=== PATIENT | male | born 1980 | race Caucasian/White ===

== ENCOUNTER 2018-04-20 07:54 | Day surgery (SDC) | payer OTHER ==
[2018-04-10 10:05] VITALS: BP 130/90
[~2018-04-20 07:54] MED LIST: CARBOXYMETHYLCELLULOSE SOD 0.5% 0.4 ML DROPERETTE ONE; CEFAZOLIN 2 GM/D5W RTU 2 GM/50 ML RTUPB IV PRN; DEXAMETHASONE SOD PHOS INJ 10 MG/1 ML VIAL ONE; DEXMEDETOMIDINE INJ 80 MCG/20 ML VIAL IV ONE; DIPHENHYDRAMINE HCL 50 MG/ML VIAL ONE; FENTANYL CITRATE INJ/PF 100 MCG/2 ML AMPUL ONE; HYDROMORPHONE HCL INJ/PF 2 MG/ML AMPULE ONE; LACTATED RINGERS 1000 ML IV PRN; LIDOCAINE 0.5% INJ-PF (5 MG/ML) 50 ML SDV SUBCUT PRN; MIDAZOLAM 2 MG/2 ML INJ ONE; PROPOFOL INJ 200 MG/20 ML VIAL IV ONE; ROCURONIUM BROMIDE INJ 50 MG/5 ML VIAL IV ONE; SUCCINYLCHOLINE CHLORIDE INJ 200 MG/10 ML VIAL ONE
[2018-04-20] MEDS ORDERED: CEFAZOLIN 2 GM/D5W RTU 2 GM/50 ML RTUPB IV SCH (08:45)
[2018-04-20] MEDS ORDERED: SCOPOLAMINE HYDROBROMIDE 1.5 MG PATCH.TD72 TD ONE (08:45)
[2018-04-20] MEDS ORDERED: MINERAL OIL (STERILE) 10 ML VIAL ONE (08:54)
[2018-04-20] MEDS ORDERED: OXYMETAZOLINE HCL 0.05% NASAL SPRAY 15 ML BOTTLE ONE (08:55)
[2018-04-20] MEDS ORDERED: BUPIVACAINE HCL 0.5%/EPI 1:200000 INJ 1.8 ML CARTRIDGE ONE (08:55)
[2018-04-20] MEDS ORDERED: BUPIVACAINE HCL 0.5%-EPI 1:200000 INJ/PF 30 ML VIAL ONE (10:41)
[2018-04-20] MEDS ORDERED: OXYCODONE-ACETAMINOPHEN 5-325 MG TABLET ONE (14:40)
[2018-04-21] MEDS ORDERED: LACTATED RINGERS 1000 ML IV PRN (05:00)
[2018-04-21] MEDS ORDERED: LIDOCAINE 0.5% INJ-PF (5 MG/ML) 50 ML SDV SUBCUT PRN (05:00)
--- NOTE | 2018-05-22 10:31 | SURGICARE OPERATIVE REPORT E ---
[facility] Operative Report NAME: CANDELARIO RAMIREZ AGE: 37Y DATE OF SURGERY: 04/20/2018 ROOM: PREOPERATIVE DIAGNOSES: 1. NASAL DEFORMITIES, ACQUIRED. 2. NASAL SEPTAL DEVIATION, ACQUIRED. 3. NASAL SEPTAL PERFORATION, ACQUIRED. 4. CHRONIC NASAL DYSPNEA. 5. BILATERAL INFERIOR TURBINATE HYPERTROPHY. POSTOPERATIVE DIAGNOSES: 1. NASAL DEFORMITIES, ACQUIRED. 2. NASAL SEPTAL DEVIATION, ACQUIRED. 3. NASAL SEPTAL PERFORATION, ACQUIRED. 4. CHRONIC NASAL DYSPNEA. 5. BILATERAL INFERIOR TURBINATE HYPERTROPHY. OPERATION PERFORMED: 1. Endonasal/closed septorhinoplasty with a revision septoplasty component of the case and the rhinoplasty component addressed the bony nasal pyramid and the lower cartilages with tip stabilization and support. 2. Septal perforation repair. 3. Bilateral inferior turbinate reduction using a submucous resection technique. SURGEON: FIGUEROA DAWSON D.O. ANESTHETIC: General endotracheal tube. ANESTHESIA STAFF: DEE COMPLICATIONS: None. DRAINS: None. SPONGE COUNT: Verified. MATERIALS FORWARDED SPECIMEN: None. IV FLUIDS: ESTIMATED BLOOD LOSS: FINDINGS: 1. Nasal septal perforation greater than 1 x 1 cm in dimension in the mid- septal distribution. 2. Nasal septal deviation involving bone and cartilage. 3. Nasal deformities involving deviation of the nose to the right, also involving bone and cartilage and there were bony irregularities of the bony nasal pyramid. 4. Bilateral inferior turbinate hypertrophy. 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 The patient had been referred for and he complained of a history of chronic nasal dyspnea over the years despite undergoing a septoplasty while in [place], [place]. The patient also complained that the previous ENT surgeon did not address his bony nasal deformities which also affected nasal function. The patient complains of difficulty as well wearing eyeglasses/sunglasses, and protective eyewear due to the nasal deformities over the years. The patient also is with history of symptoms consistent with a septal perforation that is iatrogenic in nature after his primary septoplasty. After extensive discussion with the patient, recommendation and plan was made to proceed with septorhinoplasty, revision septoplasty, septal perforation repair, and bilateral inferior turbinate reduction. The patient voiced an understanding of all that was discussed. The risks and complications of the surgery were discussed in detail. The patient voiced and understanding, agreed to proceed, and consent was obtained. PROCEDURE: The patient was taken to the main operating room and placed on the operating room table in the supine position. Appropriate monitors were placed. Using mask and IV access, general anesthesia was induced. The patient then underwent a nasal examination with injection of local anesthetic with epinephrine to establish a nasal block. Next, 2 Afrin-soaked neuro patties were placed per nasal passage. The patient was then prepped and draped in the usual fashion for nasal surgery. There was a hemitransfixion incision performed with gentle elevation of the mucoperichondrial and periosteal flaps. There was extensive scar tissue encountered during the dissection. There was gentle and delicate dissection and elevation of the septal flaps in the area of the septal perforation which was clearly identified. Deviated bony portions of the septum were removed without difficulty. There was a greater than 1.5 x 1.5 cm cartilaginous L-strut remaining. At this point, the turbinate bipolar wand was used to make 2 passes in each inferior turbinate. Next, the anterior aspect of each side was entered with a pair of Tyrell scissors followed by elevation in a submucosal plane with a Hume elevator. The anterior 1 cm portion of turbinate bone was removed without difficulty. Next, a turbinate microdebrider system at a setting of 1500 rpm was used to perform submucous resection on each side. The Johnny elevator was used to outfracture each inferior turbinate. Last, the redundant mucosal tissue was trimmed and the margins were reapproximated with Chromic suture. At this point, the rhinoplasty portion of the case was addressed in the following manner. There was an entry point made laterally for the osteotomy with a subperiosteal tunnel created for the osteotome. At this point, the medial and lateral osteotomies were performed and the bony nasal pyramid was shifted into the midline. There were also modified marginal incisions performed and dorsal rasp work was completed without difficulty. Next, the closure of the septal perforation was addressed using Chromic suture on each side. Once complete, the nose was thoroughly irrigated and suctioned and there was adequate hemostasis noted. All remaining incisions were reapproximated with Chromic suture. There was 1 Dubois silicone nasal splint placed per side and these were secured at the caudal aspect with 4-0 Prolene suture. At this point, the patient's nose was cleaned and dried, followed by placement of Mastisol, Steri-Strips, and an Aquaplast cast. The patient was next returned to the anesthesia staff and was allowed to emerge from general anesthesia. The patient was extubated in the main operating room and was then transported to the post anesthesia recovery unit in stable condition. There were no complications. DICTATING PHYSICIAN: FIGUEROA DAWSON D.O. [id number] PHY#: [id number] ID: [id number] JOB#: [id number] ACCT: [id number] cc:FIGUEROA DAWSON D.O. > MTDD
== END 2018-04-20 15:51 | disposition home or self-care (01) ==
LOC: SC 07:54
PROVIDERS: ATTEND Otolaryngology
DX: J34.2 Deviated nasal septum (principal); M95.0 Acquired deformity of nose; J34.89 Other specified disorders of nose and nasal sinuses; R04.0 Epistaxis; Z79.899 Other long term (current) drug therapy; Z79.1 Long term (current) use of non-steroidal anti-inflammatories (NSAID)
CPT/HCPCS: 30420; 30140; 30630; J2250; J3490 ×7; J1200; J3010; J1170; J0330; J2704; J1100; J0690; 160

== ENCOUNTER 2018-11-17 06:58 | Day surgery (SDC) | payer OTHER ==
[~2018-11-17 06:58] MED LIST changes: -CARBOXYMETHYLCELLULOSE SOD 0.5% 0.4 ML DROPERETTE ONE; -DEXAMETHASONE SOD PHOS INJ 10 MG/1 ML VIAL ONE; -DEXMEDETOMIDINE INJ 80 MCG/20 ML VIAL IV ONE; -DIPHENHYDRAMINE HCL 50 MG/ML VIAL ONE; -FENTANYL CITRATE INJ/PF 100 MCG/2 ML AMPUL ONE; -HYDROMORPHONE HCL INJ/PF 2 MG/ML AMPULE ONE; -MIDAZOLAM 2 MG/2 ML INJ ONE; -PROPOFOL INJ 200 MG/20 ML VIAL IV ONE; -ROCURONIUM BROMIDE INJ 50 MG/5 ML VIAL IV ONE; -SUCCINYLCHOLINE CHLORIDE INJ 200 MG/10 ML VIAL ONE
[2018-11-17] MEDS ORDERED: DEXAMETHASONE SOD PHOSPHATE INJ 4 MG/1 ML VIAL ONE (07:12)
[2018-11-17] MEDS ORDERED: MIDAZOLAM 2 MG/2 ML INJ ONE (07:12)
[2018-11-17] MEDS ORDERED: FENTANYL CITRATE INJ/PF 250 MCG/5 ML AMPULE ONE (07:12)
[2018-11-17] MEDS ORDERED: ONDANSETRON HCL INJ/PF 4 MG/2 ML SDV ONE (07:12)
[2018-11-17] MEDS ORDERED: ACETAMINOPHEN 1,000 MG/100 ML RTUPB IV ONE (07:13)
[2018-11-17] MEDS ORDERED: PROPOFOL INJ 200 MG/20 ML VIAL IV ONE (07:13)
[2018-11-17] MEDS ORDERED: CEFAZOLIN 2 GM/D5W RTU 2 GM/50 ML RTUPB IV ONE (07:28)
[2018-11-17] MEDS ORDERED: SUCCINYLCHOLINE CHLORIDE INJ 200 MG/10 ML VIAL ONE (09:19)
[2018-11-17] MEDS ORDERED: OXYMETAZOLINE HCL 0.05% NASAL SPRAY 15 ML BOTTLE ONE (09:42)
[2018-11-17] MEDS ORDERED: BALANCED SALT IRRIG SOLN COMB2 15 ML BOTTLE ONE (09:44)
[2018-11-17] MEDS ORDERED: TOBRAMYCIN SULFATE/DEXAMETH OPH SUSP 2.5 ML ONE (09:45)
[2018-11-17] MEDS ORDERED: BUPIVACAINE HCL 0.5%/EPI 1:200000 INJ 1.8 ML CARTRIDGE ONE ×2 (09:45→09:51)
[2018-11-17] MEDS ORDERED: MINERAL OIL (STERILE) 10 ML VIAL ONE (09:45)
[2018-11-17] MEDS ORDERED: BUPIVACAINE HCL 0.5%-EPI 1:200000 INJ/PF 30 ML VIAL ONE (09:48)
[2018-11-17] MEDS ORDERED: BACITRACIN ZINC OINTMENT 15 GM ONE (09:54)
[2018-11-17] MEDS ORDERED: TOBRAMYCIN SULFATE/DEXAMETH OPH OINTMENT 3.5 GM ONE (12:54)
[2018-11-17] MEDS ORDERED: ONDANSETRON HCL INJ/PF 4 MG/2 ML SDV IV PRN ×3 (16:57→20:30)
[2018-11-17] MEDS ORDERED: FENTANYL CITRATE INJ/PF 100 MCG/2 ML AMPUL IV PRN ×3 (16:57)
[2018-11-17] MEDS ORDERED: MEPERIDINE HCL/PF INJ 25 MG/1 ML DISP.SYRIN IV PRN (16:57)
[2018-11-17] MEDS ORDERED: PROMETHAZINE HCL INJ 25 MG/1 ML VIAL IV PRN ×3 (16:57→19:10)
[2018-11-17] MEDS ORDERED: DIPHENHYDRAMINE HCL 50 MG/ML VIAL IV PRN (16:57)
[2018-11-17] MEDS ORDERED: MORPHINE SULFATE 10 MG/ML INJ IV PRN ×2 (16:57→19:10)
[2018-11-17] MEDS ORDERED: CEFAZOLIN INJ 1 GM VIAL ONE (18:18)
[2018-11-17] MEDS: FENTANYL CITRATE INJ/PF 100 MCG/2 ML AMPUL ONE ×2 (18:55→19:00)
[2018-11-17] MEDS ORDERED: OXYCODONE-ACETAMINOPHEN 5-325 MG TABLET PO PRN (19:10)
[2018-11-17] MEDS ORDERED: RINGERS SOLUTION,LACTATED 1,000 ML IV PRN (19:10)
[2018-11-17 22:21] VITALS: BP 116/71
--- NOTE | 2018-11-21 22:17 | OPERATIVE REPORT E ---
Operative Report NAME: CANDELARIO RAMIREZ : 1980 AGE: 38Y DATE OF SURGERY: 11/17/2018 ROOM: 425 PREOPERATIVE DIAGNOSES: 1. NASAL SEPTAL DEVIATION ACQUIRED. 2. NASAL SEPTAL PERFORATION. 3. CHRONIC NASAL DYSPNEA. 4. NASAL DEFORMITIES ACQUIRED. 5. HISTORY OF RECURRENT NASAL TRAUMA. 6. HISTORY OF PRIOR NASAL SURGERY POSTOPERATIVE DIAGNOSES: 1. NASAL SEPTAL DEVIATION ACQUIRED. 2. NASAL SEPTAL PERFORATION. 3. CHRONIC NASAL DYSPNEA. 4. NASAL DEFORMITIES ACQUIRED. 5. HISTORY OF RECURRENT NASAL TRAUMA. 6. HISTORY OF PRIOR NASAL SURGERY OPERATION PERFORMED: 1. Revision external septorhinoplasty with irradiate costal cartilage rib graft. 2. Nasal septal perforation repair. SURGEON: FIGUEROA DAWSON D.O. ANESTHESIA: General endotracheal tube. ANESTHESIA STAFF: Johnathon Galindo CRNA. ESTIMATED BLOOD LOSS: 150 mL. FLUIDS: 800 mL. URINE OUTPUT: 1800 mL. COMPLICATIONS: None. DRAINS: None. SPONGE COUNT: Verified. NEEDLE COUNT: Verified. MATERIALS FORWARDED SPECIMEN: None. IMPLANT: Irradiated costal cartilage rib graft. FINDINGS: 1. Nasal septal perforation measuring greater 1.5 x 1 cm in dimension. 2. The patient with reverse C-shaped deformity of the nose involving bone and cartilage. 3. Left nasal sidewall bony/cartilage and is prominent. 4. The patient with bulbous nasal tip and inadequate nasal complex support. 5. There was cartilage graft material in the right nasal super tip area which was mobilized and removed. 6. There were irregularities and fullness noted of the lower lateral cartilages, right greater than left. 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 The patient had originally been referred for chronic nasal dyspnea, nasal deformity, nasal septal deviation acquired despite previous nasal surgery at [facility] in [place]. The patient postoperatively was with chronic nasal dyspnea, persistence of nasal deformities that were not addressed in the original surgery, and a resulting nasal septal perforation. The patient underwent a revision nasal surgery to address the chronic nasal dyspnea and septal perforation. However, the nasal septal perforation persisted as did the chronic nasal dyspnea and there was subsequent deviation of nasal cartilage with nasal deformity persisting. After extensive discussion with the patient the recommendation and plan was made for a revision external septorhinoplasty with use of irradiated costal cartilage rib graft material for definitive management and repair of the septal perforation. The patient voiced an understanding of the described surgical plan, was in agreement, and consent was obtained. PROCEDURE IN DETAIL: The patient was taken to the main operating room and was placed on the operating room table in the supine position. Appropriate monitors were placed. Using mask and IV access general anesthesia was induced. The patient was transorally intubated without difficulty. The patient was then positioned and prepped for nasal surgery. The patient underwent a nasal examination with injection of a local anesthetic with epinephrine and 2 Afrin soaked neuro patties were placed per side. The patient was then prepped and draped in a sterile fashion for nasal surgery. At this point the Afrin soaked neuro patties were removed and the patient underwent a hemitransfixion incision. There was careful delicate dissection and elevation of the mucoperichondrial and mucosal flaps. The dissection was carried out to the area of the septal perforation were tissue was prepared as well for repair of the septal perforation. Once the flaps were divided there was further flap development for mobilization of tissue and to allow for a closure with decreased tension. At this point attention was turned to the rhinoplasty portion of the case. At this point the patient had an inverted V-incision marked at the mid columellar distribution. Next an 11 and #15 blade scalpel were used to incise the planned incision site. Incisions were carried into the nose as marginal incisions. Next the skin soft tissue envelope was elevated. There was cartilage graft material in the right nasal super tip area which was mobilized and removed. The soft tissue envelope was elevated in a subperiosteal plane. There was a very mild debulking of the subcutaneous tissue component of the skin soft tissue envelope. There were irregularities and fullness noted of the lower lateral cartilages, right greater than left. At this point the patient underwent a cephalic trim on the right side greater than the left side. There was greater than 8 mm left of each lower lateral cartilage. At this point the upper lateral cartilages were released from the septum. There was dorsal rasp work performed for contouring and excessive dorsal cartilage was trimmed. At this point the irradiated costal cartilage rib graft had been previously carved and allowed to set in normal saline. A central core piece of the graft was noted to be straight and without deformity. This was carved into a robust left store loss prevention manager graft that was fixed in place with Prolene suture. Prior to this there was a left medial ostotomy performed to seed the graft more cephalically to allow for transition as well into the cartilaginous portion of the nose. The graft was also secured in a staggered fashion through the septum and into the left upper lateral cartilage to help seed the graft in place and stabilize the mid vault of the nose. Once complete the right upper lateral cartilage was reattached in a tension free manner with Prolene suture. At this point the patient's dome region of the lower lateral cartilages were reapproximated in the midline with Prolene suture. At this point the skin soft tissue envelope was brought back into position and secured with a Chromic suture deep. Attention was turned back to the intranasal portion of the case. The mucosal flaps and margins were reapproximated with Chromic suture to close the septal perforation of the left and right mucosal flaps. Once complete the nose was thoroughly irrigated and suctioned and there was adequate hemostasis noted. The Dubois silicon splints were modified and then inserted with bacitracin ointment. The splints were secured in place with 4-0 Prolene suture. At this point all mucosal incisions were reapproximated with Chromic suture. Next the skin margins of the columellar were reapproximated with 6-0 Prolene suture. The patient's nose was then cleaned and dried, followed by placement of Mastisol Steri-Strips, and a [place] aluminum pressure splint. The patient was returned to the anesthesia staff and was allowed to emerge from general anesthesia. The patient was extubated in the main operating room and was then transported to the post anesthesia unit in stable condition. There were no complications. DICTATING PHYSICIAN: FIGUEROA DAWSON D.O. [id number] PHY#: [id number] ID: [id number] JOB#: [id number] ACCT: [id number] cc:FIGUEROA DAWSON D.O. >
== END 2018-11-17 22:30 | disposition home or self-care (01) ==
LOC: OROUT 06:58 → 4S 20:31 → OROUT 22:30
PROVIDERS: ATTEND Otolaryngology
DX: M95.0 Acquired deformity of nose (principal); J34.2 Deviated nasal septum; J34.89 Other specified disorders of nose and nasal sinuses; R04.0 Epistaxis; L90.5 Scar conditions and fibrosis of skin
CPT/HCPCS: 94762; 30420; 21230; 30630; J2250; J3490 ×7; J0690 ×2; J1100; J3010 ×2; J0330; J2405; J7120; J2704; J0131; 160